=== PATIENT | male | born 1935 | race Caucasian/White ===

== ENCOUNTER 2018-01-06 07:50 | Inpatient (IN) | payer MEDICARE ==
[2018-01-06 08:50] LABS: Anion Gap 14 mmol/L (10-20); BUN (Urea Nitrogen) 24 mg/dL (8.4-25.7); Calc. Creatinine Clearance 0 mL/min (70-130); Calcium 9.7 mg/dL (7.8-10.44); Carbon Dioxide 27 mmol/L (23-31); Chloride 97 mmol/L (98-107); Estimated GFR-MDRD 40; Glucose 106 mg/dL (83-110); Potassium 4.1 mmol/L (3.5-5.1); Sodium 134 mmol/L (136-145)
[2018-01-06 08:57] LABS: Troponin I 0.077 ng/mL (< 0.028)
--- NOTE | 2018-01-06 10:02 | CT ---
CT ANGIOGRAM CHEST WITH CONTRAST: HISTORY: Chest pain. COMPARISON: Chest radiograph 09/12/05. FINDINGS: CT angiogram chest performed after the intravenous administration of contrast. Three-D rendering pro vided. FINDINGS: No proximal segmental pulmonary arterial filling defect. Pulmonary trunk size is normal measuring ap proximately 27 mm. No aneurysmal dilatation of the aorta. Mild increase in number and size of AP window and prevascular peritracheal lymph nodes. There is reflux of contrast within the suprahepatic IVC and hepatic vein as well as within the infrah epatic IVC. Moderate bilateral pleural effusions. There is mild interstitial thickening throughout the lungs. Mild peribronchial cuffing. No mass. N o pneumothorax. IMPRESSION: 1. No proximal segmental pulmonary arterial filling defect. 2. Reflux of contrast within the superior hepatic inferior vena cava, hepatic veins, and infrahepati c inferior vena cava suggesting diastolic dysfunction. Followup echocardiogram may be beneficial in this patient. 3. Layering bilateral pleural effusions as well as moderate pulmonary edema suggesting congestive he art failure. POS: [facility]
[2018-01-06] MEDS ORDERED: Furosemide 40 MG/4 ML VIAL ONE (10:09)
[2018-01-06] MEDS ORDERED: Nitroglycerin 2% Ointment 1 INCH/1 GM Packet ONE (10:09)
[2018-01-06 12:00] LABS: Troponin I 0.085 ng/mL (< 0.028)
[2018-01-06] MEDS ORDERED: ISOVUE-370 76%-LOCM 1 ML ONE (12:43)
[2018-01-06] MEDS ORDERED: Ondansetron ODT 4 MG TAB SL PRN (13:13)
[2018-01-06] MEDS ORDERED: Acetaminophen 325 MG TAB PO PRN ×2 (13:13→13:25)
[2018-01-06] MEDS ORDERED: Ondansetron HCl/PF 4 MG/2 ML Vial IVP PRN ×2 (13:13→13:25)
[2018-01-06] MEDS ORDERED: Zolpidem Tartrate 5 MG TAB PO PRN (13:25)
[2018-01-06] MEDS ORDERED: Nitroglycerin 0.4 MG TAB (25 Tab Bottle) PO PRN (13:25)
[2018-01-06 13:26] VITALS: BMI 26.5
--- NOTE | 2018-01-06 14:21 | HP ---
PRIMARY CARE PROVIDER: Dr. Vaz at [facility] in [place]. HISTORY OF PRESENT ILLNESS: The patient referred to the [facility] Service by [facility] after being referred from the [facility] Emergency Room. Patient refer red for acute onset of CHF symptomatology. The patient woke up last night gasping for breath, sweaty . Denies chest tightness or chest pain. He had no nausea. PAST MEDICAL HISTORY: Pertinent for hypertension, elevated cholesterol, and coronary artery disease. CURRENT MEDICATIONS: Lisinopril 5 mg a day, aspirin 81 mg a day, Coreg 3.125 mg twice a day, Crestor 20 mg a day. He has had three eye drops recently that all caused swelling and itching in his right eye and he discontinued them. ALLERGIES: No known drug allergies. PAST SURGICAL HISTORY: Coronary artery bypass graft in 2004, laser surgery for glaucoma last year, d rops were given afterwards and discontinue tomorrow for local irritation. FAMILY HISTORY: Father of coronary artery disease. Mother with Alzheimer's. SOCIAL HISTORY: He is , FULL CODE status. next of kin, surrogate decision maker. Nonto bacco user. Drinks approximately 1-2 beers a week. REVIEW OF SYSTEMS: GENERAL: He says he has had some malaise for about 10 days. No dizziness, faint ing. EYES: He has got the irritation in his right eye, but no double vision, blurred vision, flashi ng lights. EAR, NOSE, AND THROAT: No ear pain or drainage. No nasal bleeding. No trouble swallowi ng. CARDIAC: No chest pain of any type. No orthopnea. He did have nocturnal dyspnea last night. RESPIRATIONS: He has had a dry cough for about a week. Denies any dyspnea on exertion or wheezing. GASTROINTESTINAL: No nausea, vomiting, diarrhea, constipation or melena. GENITOURINARY: He has no cturia x1 with no dysuria or hematuria. MUSCULOSKELETAL: No pain or swelling in his arms and legs. NEUROLOGICAL: No strokes, seizures or focal weakness. PSYCHIATRIC: No anxiety or depression. HEM E/LYMPH: No tender or swollen lymph nodes under his arms, neck or his groin. SKIN: No bruises, ble eding or rash. PHYSICAL EXAMINATION: GENERAL: The patient is alert, cooperative, pleasant gentleman. VITAL SIGNS: Blood pressure 154/91, pulse 65, respirations 20, O2 sat 96% on room air, temperature 9 7.6. HEENT: Examination of his head, eyes, ears, nose, and throat reveal pupils are equal, round, and yisel ctive to light. Extraocular movements are intact. Sclerae are white. He has an injected mucous mem brane on the lids of his right eye. Tympanic membranes clear. Nose is clear. Oral mucous membranes are wet. Dental hygiene is good. NECK: Supple, without jugular venous distention, adenopathy or thyromegaly. CHEST: Clear to percussion. He has rales to mid scapula posteriorly bilaterally, scant anterior low er rales. HEART: Regular rate and rhythm. First and second heart sounds are clear. There is an S4 gallop. ABDOMEN: Soft, bowel sounds are normal. There is no hepatosplenomegaly, no mass, no rebound, no bru its. EXTREMITIES: Reveal no cyanosis, clubbing or edema. PULSES: Carotid, radial, femoral, and dorsalis pedis pulses are intact. SKIN: Warm and dry without bruises or rash. LYMPHATIC: No tender or swollen lymph nodes in axilla, inguinal or cervical area. NEUROLOGIC: Cranial nerves II-XII intact. Deep tendon reflexes symmetric. Toes downgoing. LABORATORY DATA AND X-RAY FINDINGS: His troponin in [place] was 0.06, creatinine 1.75, BUN 24, blood sugar 119. Liver function test is normal. Electrolytes normal. CBC: White count 9.8, hemoglobin 10.8. Chest x-ray, cardiomegaly with CHF here. The patient has had an electrocardiogram, regular si nus rhythm, ST-T depression laterally and inferiorly consistent with ischemia, read by me. Laborator y was repeated here, creatinine 1.66, BUN 24, sodium 134, potassium 4.1, and troponin 0.077 and 0.085 . ADMITTING DIAGNOSES: 1. Acute onset of congestive heart failure. 2. Demand ischemia versus non-ST elevation myocardial infarction. 3. Coronary artery disease. 4. Hypertension. 5. Dyslipidemia. PLAN: 1. Dr. Mckee has been consulted. 2. Echocardiogram. 3. Continue diuresis started in the ER. 4. Reinstitute Coreg and lisinopril when patient improved. 5. Lovenox therapeutic dose for non-ST elevation OK. Further considerations will be made after katie ent is seen by Dr. Mckee and data is obtained.
[2018-01-06 14:25] LABS: Troponin I 0.096 ng/mL (< 0.028)
[2018-01-06] MEDS ORDERED: Furosemide 40 MG/4 ML VIAL SLOW IVP SCH ×2 (16:00→20:00)
--- NOTE | 2018-01-06 18:21 | RAD ---
FRONTAL RADIOGRAPH CHEST 01/06/18 COMPARISON: 09/30/05 HISTORY: Congestive heart failure. COMPARISON: PA and lateral imaging of the chest following treatment advised to document resolution. FINDINGS: There is prominence of the cardiac silhouette. Midline sternotomy wires are present. There is mild pu lmonary vascular congestion and perihilar interstitial prominence. Subtle hazy density in both lung b ases suggests small bilateral pleural effusions. No alveolar opacity. No focal consolidation. There is atherosclerotic calcification in the aortic arch. IMPRESSION: Pulmonary vascular prominence and interstitial opacity with probable small bilateral pleural effusion suggests interstitial edema. This appears mildly improved when compared to chest CT performed 8. POS: [facility]
[2018-01-06] MEDS ORDERED: Potassium Chloride 20 MEQ TAB PO SCH ×2 (20:00)
[2018-01-06] MEDS ORDERED: Enoxaparin Sodium 40 MG/0.4 ML SYRINGE SC SCH (20:00)
[2018-01-06] MEDS ORDERED: Communication Order-Pharmacy FS SCH (20:00)
[2018-01-06] MEDS ORDERED: Prevnar 13-Val Conj/PF 0.5 ML SYRINGE IM ONE (21:00)
[2018-01-06] MEDS ORDERED: Enoxaparin Sodium 80 MG/0.8 ML SYRINGE SC SCH (21:00)
[2018-01-06] MEDS: Carvedilol 3.125 MG TAB PO SCH (21:04)
--- NOTE | 2018-01-07 01:12 | CON ---
DATE OF CONSULTATION: 01/06/2018 REASON FOR CONSULTATION: Flash pulmonary edema. HISTORY OF PRESENT ILLNESS: Mr. Neff is a very pleasant 83-year-old gentleman with previous hist ory of coronary artery bypass grafting, who was transferred from [place] for sudden onset of pulmonar y edema. Mr. Neff states he has been doing well, but he has noted when he tries to exert himself he feels somewhat short of breath, which he previously was not doing. He did not have any trouble breathing a t night. Last night; however, he had severe difficulty breathing and a severe choking sensation. He went to the hospital and he was found to be in pulmonary edema. He received diuretics. He is feeling somewhat better, still cannot lie totally flat comfortably, but much better. PAST MEDICAL HISTORY: 1. He has a history of coronary artery bypass grafting done in 2004 for multivessel coronary disease . 2. History of hypertension. 3. Hypercholesterolemia. MEDICATIONS: At home included rosuvastatin, carvedilol, aspirin, lisinopril. ALLERGIES: None known. REVIEW OF SYSTEMS: Constitutional: No significant weight gain or loss. Vision: No changes. Heari ng: No changes. Pulmonary: Positive for shortness of breath. Cardiac: Positive for shortness of breath. Gastrointestinal: No nausea, vomiting, diarrhea. Skin: No rashes. Neurologic: No unilat eral weakness or numbness. Psychiatric: No unusual depression or anxiety. PHYSICAL EXAMINATION: GENERAL: This is a pleasant elderly gentleman in no distress. VITAL SIGNS: Blood pressure 143/73; pulse 62, it is regular. EYES: Sclerae nonicteric. MOUTH: Mucous membranes moist. NECK: Supple, no lymphadenopathy. LUNGS: Clear, no wheezing, rales, or rhonchi. CARDIOVASCULAR: Normal S1, normal S2. There is no murmur, rub, or gallop. ABDOMEN: Soft, nontender, no hepatosplenomegaly. EXTREMITIES: Warm and dry. No clubbing or cyanosis. There is no edema. The patient has good femor al pulses, but diminished pedal pulses. LABORATORY AND X-RAY FINDINGS: EKG sinus rhythm, T-wave inversion laterally, possibly ischemia. Troponin level peaked 0.096. ASSESSMENT: 1. Congestive heart failure, likely systolic, acute on chronic, probably ischemic. 2. Previous bypass surgery. 3. Stage 3 renal failure, estimated GFR is 40. PLAN: 1. Give one additional dose of diuretics. 2. He will need cardiac catheterization. Discussed risks of stroke, heart attack, iodine allergy, i nterfering with blood supply to the leg or kidney, stent thrombosis, stent restenosis. He understand s and wished to proceed.
[2018-01-07 04:55] LABS: Anion Gap 15 mmol/L (10-20); BUN (Urea Nitrogen) 24 mg/dL (8.4-25.7); Calc. Creatinine Clearance 42 mL/min (70-130); Calcium 9.4 mg/dL (7.8-10.44); Carbon Dioxide 31 mmol/L (23-31); Chloride 93 mmol/L (98-107); Estimated GFR-MDRD 43; Glucose 92 mg/dL (83-110); Potassium 3.6 mmol/L (3.5-5.1); Sodium 135 mmol/L (136-145)
[2018-01-07] MEDS ORDERED: Furosemide 40 MG/4 ML VIAL SLOW IVP SCH (06:00)
[2018-01-07] MEDS: Sodium Chloride 0.9% 1,000 ML IV SCH (06:08)
[2018-01-07] MEDS: Lisinopril 5 MG TAB PO SCH (06:12)
[2018-01-07] MEDS: Carvedilol 3.125 MG TAB PO SCH (06:12)
[2018-01-07] MEDS ORDERED: Loratadine 10 MG TAB PO PRN (07:30)
[2018-01-07] MEDS ORDERED: Senokot 8.6 MG TAB PO PRN (07:30)
[2018-01-07] MEDS ORDERED: Ondansetron ODT 4 MG TAB PO PRN (07:30)
[2018-01-07] MEDS ORDERED: Chloraseptic Spray 180 ml Bottle PO PRN (07:30)
[2018-01-07] MEDS ORDERED: Sodium Chloride 0.65% Nasal 44 ML BOT EA NARE PRN (07:30)
[2018-01-07] MEDS ORDERED: hydrALAZINE 20 MG/ML VIAL SLOW IVP PRN (07:30)
[2018-01-07] MEDS ORDERED: Mag-Al 1200 mg/1200 mg/30 ML UDCUP PO PRN (07:30)
[2018-01-07] MEDS ORDERED: Loperamide HCl 2 MG CAP PO PRN (07:30)
[2018-01-07] MEDS ORDERED: Milk Of Magnesia 30 ML UDCUP PO PRN (07:30)
[2018-01-07] MEDS ORDERED: Eucerin (Mineral Oil/Petrolatum,White) 30 gm Jar TOP PRN (07:30)
[2018-01-07] MEDS ORDERED: Diabetic Tussin 200 MG/10 ML UDCUP PO PRN (07:30)
[2018-01-07] MEDS ORDERED: Artificial Tear Sol 15 ML BOT EA EYE PRN (07:54)
[2018-01-07] MEDS ORDERED: Lidocaine 1% (PF) 30 ML VIAL ONE (08:40)
[2018-01-07] MEDS ORDERED: Famotidine 20 MG TAB PO SCH (09:00)
[2018-01-07] MEDS ORDERED: Fentanyl 100 MCG/2 ML VIAL ONE (09:22)
[2018-01-07] MEDS ORDERED: Midazolam HCl 2 mg/2 ml Vial ONE (09:23)
[2018-01-07] MEDS ORDERED: Nitroglycerin 100MG/250ML BOT 250 ML ONE (09:48)
[2018-01-07] MEDS ORDERED: Nitroglycerin 0.4 MG TAB (25 Tab Bottle) SL PRN (10:21)
[2018-01-07] MEDS ORDERED: traMADol HCl 50 MG TAB PO PRN (10:21)
[2018-01-07] MEDS ORDERED: Acetaminophen/Codeine 30-300mg Tablet PO PRN (10:21)
[2018-01-07] MEDS ORDERED: Sodium Chloride 0.9% 200 ML IV PRN (10:30)
[2018-01-07] MEDS: Ketotifen Fumarate 0.025% Ophth Soln 5 ml Bottle R EYE SCH ×2 (10:42→20:34)
[2018-01-07] MEDS: Rosuvastatin 20 MG TAB PO SCH ×2 (10:44)
[2018-01-07] MEDS: Aspirin 325 MG TAB PO SCH (10:44)
--- NOTE | 2018-01-07 10:59 | PDOC.PN ---
- Subjective Encounter Start Date: 01/07/18 Encounter Start Time: 09:30 -: old records requested/rev c/o right eye redness, no headache, no chest pain, Patient seen and examined. No new complaints. No overnight events - Objective Resuscitation Status: Resuscitation Status FULL:Full Resuscitation MAR Reviewed: Yes Vital Signs & Weight: Vital Signs (12 hours) Temp Pulse Resp BP BP Pulse Ox 01/07/18 07:44 98 F 65 15 98 01/07/18 07:11 98 F 65 15 142/68 H 91 L 01/07/18 06:00 98.1 F 61 18 133/70 94 L 01/07/18 00:27 98.1 F 67 16 137/66 92 L Weight Weight 173 lb 1.006 oz I&O: 01/06/18 01/07/18 01/08/18 06:59 06:59 06:59 Intake Total 1160 Output Total 2875 Balance -1715 Result Diagrams: 01/07/18 03:31 Radiology Reviewed by me: Yes EKG Reviewed by me: Yes Phys Exam - Physical Examination Constitutional: NAD HEENT: PERRLA, moist MMs, sclera anicteric right eye redness Neck: no nodes, no JVD, supple Respiratory: no wheezing, no rhonchi few basilar rales Cardiovascular: RRR, no significant murmur, no rub Gastrointestinal: soft, non-tender, no distention, positive bowel sounds Musculoskeletal: pulses present, edema present Neurological: non-focal, normal sensation, moves all 4 limbs Psychiatric: normal affect, A&O x 3 Skin: no rash, normal turgor Dx/Plan (1) Acute on chronic systolic (congestive) heart failure Code(s): I50.23 - ACUTE ON CHRONIC SYSTOLIC (CONGESTIVE) HEART FAILURE Status : Acute (2) Elevated troponin Code(s): R74.8 - ABNORMAL LEVELS OF OTHER SERUM ENZYMES Status: Acute (3) CKD (chronic kidney disease) stage 3, GFR 30-59 ml/min Code(s): N18.3 - CHRONIC KIDNEY DISEASE, STAGE 3 (MODERATE) Status: Chronic (4) Dyslipidemia Code(s): E78.5 - HYPERLIPIDEMIA, UNSPECIFIED Status: Chronic (5) Hypertension Code(s): I10 - ESSENTIAL (PRIMARY) HYPERTENSION Status: Chronic (6) Glaucoma Code(s): H40.9 - UNSPECIFIED GLAUCOMA Status: Chronic - Plan cont current plan of care * continue IV lasix * gentle IVF before cardiac cath * plan for cardiac cath * transfer to tele * medication reviewed as below * symptomatic treatment * add zaditor eye drop and artificial tear. Review of Systems - Review of Systems Constitutional: negative: fever, chills, sweats, weakness, malaise, other Eyes: Redness. negative: Pain, Vision Change, Conjunctivae Inflammation, Eyelid Inflammation, Other ENT: negative: Ear Pain, Ear Discharge, Nose Pain, Nose Discharge, Nose Congestion, Mouth Pain, Mouth Swelling, Throat Pain, Throat Swelling, Other Respiratory: negative: Cough, Dry, Shortness of Breath, Hemoptysis, SOB with Excertion, Pleuritic Pain, Sputum, Wheezing Cardiovascular: negative: chest pain, palpitations, orthopnea, paroxysmal nocturnal dyspnea, edema, light headedness, other Gastrointestinal: negative: Nausea, Vomiting, Abdominal Pain, Diarrhea, Constipation, Melena, Hematochezia, Other Genitourinary: negative: Dysuria, Frequency, Incontinence, Hematuria, Retention , Other Musculoskeletal: negative: Neck Pain, Shoulder Pain, Arm Pain, Back Pain, Hand Pain, Leg Pain, Foot Pain, Other Skin: negative: Rash, Lesions, Pieter, Bruising, Other Neurological: negative: Weakness, Numbness, Incoordination, Change in Speech, Confusion, Seizures, Other - Medications/Allergies Allergies/Adverse Reactions: Allergies Allergy/AdvReac Type Severity Reaction Status Date / Time No Known Drug Allergies Allergy Verified 01/06/18 13:10 Medications: Current Medications Acetaminophen (Tylenol) 650 mg PO Q4H PRN PRN Reason: Headache/Fever or Pain Last Admin: 01/06/18 21:10 Dose: 650 mg Acetaminophen/Codeine Phosphate (Tylenol #3) 1 tab PO Q4H PRN PRN Reason: Mild Pain (1-3) Al Hydroxide/Mg Hydroxide (Maalox) 15 ml PO Q4H PRN PRN Reason: Heartburn or Indigestion Artificial Tears (Tears Renewed 15ml Bottle) 2 drop EA EYE QID PRN PRN Reason: Dry Eyes Aspirin (Aspirin) 325 mg PO DAILY [facility] Last Admin: 01/07/18 10:44 Dose: 325 mg Carvedilol (Coreg) 3.125 mg PO BID [facility] Last Admin: 03/29/18 06:12 Dose: 3.125 mg Famotidine (Pepcid) 20 mg PO BID [facility] Last Admin: 01/07/18 10:44 Dose: 20 mg Guaifenesin (Robitussin Sf) 200 mg PO Q4H PRN PRN Reason: Cough Hydralazine HCl (Apresoline) 10 mg SLOW IVP Q4H PRN PRN Reason: Systolic BP > 180 Sodium Chloride (Normal Saline 0.9%) 1,000 mls @ 50 mls/hr IV .Q20H [facility] Last Admin: 01/07/18 06:08 Dose: 1,000 mls Sodium Chloride (Normal Saline 0.9%) 200 mls @ 0 mls/hr IV ONE PRN; As Directed PRN Reason: Bolus PRN SBP < 90 mm Hg Stop: 01/10/18 10:31 Ketotifen Fumarate (Zaditor 0.025% Oph Soln) 1 drop R EYE BID [facility] Last Admin: 01/07/18 10:42 Dose: 1 drop Lisinopril (Zestril) 5 mg PO DAILY [facility] Last Admin: 01/07/18 06:12 Dose: 5 mg Loperamide HCl (Imodium) 2 mg PO PRN PRN PRN Reason: Diarrhea/Loose Stools Loratadine (Claritin) 10 mg PO DAILYPRN PRN PRN Reason: Sinus Symptoms Magnesium Hydroxide (Milk Of Magnesium) 30 ml PO DAILYPRN PRN PRN Reason: Constipation Mineral Oil/White Petrolatum (Eucerin Cream) 0 gm TOP BIDPRN PRN PRN Reason: Dry Skin Nitroglycerin (Nitrostat) 0.4 mg PO Q5MIN PRN PRN Reason: Chest Pain Nitroglycerin (Nitrostat) 0.4 mg SL Q5MIN PRN PRN Reason: Chest Pain Ondansetron HCl (Zofran) 4 mg IVP Q6H PRN PRN Reason: Nausea/Vomiting Ondansetron HCl (Zofran Odt) 4 mg PO Q6H PRN PRN Reason: Nausea/Vomiting Phenol (Chloraseptic [place] 180 Ml Bot) 0 ml PO PRN PRN PRN Reason: Sore Throat Rosuvastatin Calcium (Crestor) 20 mg PO DAILY [facility] Last Admin: 01/07/18 10:44 Dose: 20 mg Senna (Senokot) 2 tab PO HSPRN PRN PRN Reason: Constipation Sodium Chloride (Christoval Nasal [place] 0.65%) 0 ml EA NARE QIDPRN PRN PRN Reason: Nasal Congestion Sodium Chloride (Flush - Normal Saline) 10 ml IVF Q12HR ILDEFONSO Sodium Chloride (Flush - Normal Saline) 10 ml IVF PRN PRN PRN Reason: Saline Flush Tramadol HCl (Ultram) 50 mg PO Q6H PRN PRN Reason: Moderate Pain (4-6) Zolpidem Tartrate (Ambien) 5 mg PO HSPRN PRN PRN Reason: Insomnia
[2018-01-07] MEDS ORDERED: Iopamidol 370 76% 100 ML VIAL ONE (12:21)
--- NOTE | 2018-01-07 14:07 | PQF ---
CLINICAL DOCUMENTATION IMPROVEMENT CLARIFICATION FORM: ICD-10 Updated PLEASE DO AN ADDENDUM TO THE PROGRESS NOTE WITH ANY DOCUMENTATION UPDATES OR ADDITIONS AND CARRY THROUGH TO DC SUMMARY. THANK YOU. DATE: 01/07/18 ATTN: DR. ALDANA Please exercise your independent, professional judgment in responding to the clarification form. Clinical indicators are provided on the bottom of this form for your review Please check appropriate box(s) to clarify if the following diagnosis has been ruled in or ruled out: NSTEMI [ ] Ruled in diagnosis [ ] Continue to treat [ ] Resolved [ x] Ruled out diagnosis [ ] Cannot rule out diagnosis [ ] Other diagnosis [ ] Unable to determine In addition, please specify: Present on Admission (POA): [ ] Yes [ x ] No [ ] Unable to determine For continuity of documentation, please document condition throughout progress notes and discharge summary. Thank You. CLINICAL INDICATORS - SIGNS / SYMPTOMS / LABS H&P 01/06: "DEMAND ISCHEMIA VERSUS NON-ST ELEVATION MYOCARDIAL INFARCTION" TROPONINS: 0.077 / 0.085 / 0.096 RISKS: HYPERTENSION CHF TREATMENT: CARDIOLOGY CONSULT ECHOCARDIOGRAM ASPIRIN CARDIAC MONITORING (This form is maintained as a part of the permanent medical record) 2014 [employer]. All Rights Reserved SID [email or web address] Office: [phone] [facility] MED[facility] CENTERMelinda
[2018-01-07 18:10] LABS: Hemoglobin 11.8 g/dL (14.0-18.0)
[2018-01-07] MEDS: Carvedilol 6.25 MG TAB PO SCH (20:34)
[2018-01-08] MEDS: Sodium Chloride 0.9% 1,000 ML IV SCH (04:08)
[2018-01-08 04:54] LABS: #Basophils 0.1 thou/uL (0.0-0.2); #Eosinphils 0.5 thou/uL (0.0-0.7); #Lymphocytes 2.3 thou/uL (1.20-3.40); #Monocytes 1.3 thou/uL (0.11-0.59); #Neutrophils 6.5 thou/uL (1.40-6.50); %Basophils 0.8 % (0.0-1.0); %Eosinophils 4.9 % (0.0-10.0); %Lymphocytes 21.8 % (21.0-51.0); %Neutrophils 60.5 % (42.0-75.0); Hemoglobin 11.3 g/dL (14.0-18.0); Mean Corpuscular HGB CONC 33.2 g/dL (32.0-36.0); Mean Corpuscular Hemoglobin 32.9 pg (27.0-31.0); Mean Corpuscular Volume 99.1 fl (80.0-94.0); Mean Platelet Volume 6.8 fL (7.4-10.4); Platelet Count 332 thou/uL (130-400); RBC Distribution Width 12.2 % (11.5-14.5); Red Blood Cell (RBC) Count 3.43 mill/uL (4.70-6.10); White Blood Cell (WBC) Count 10.7 thou/uL (4.8-10.8)
[2018-01-08 05:03] LABS: ALT (SGPT) 10 U/L (8-55); AST (SGOT) 15 U/L (5-34); Albumin 3.5 g/dL (3.4-4.8); Alkaline Phosphatase 61 U/L (40-150); Anion Gap 11 mmol/L (10-20); BUN (Urea Nitrogen) 21 mg/dL (8.4-25.7); Bilirubin, Total 0.6 mg/dL (0.2-1.2); Calc. Creatinine Clearance 39 mL/min (70-130); Calcium 9.3 mg/dL (7.8-10.44); Carbon Dioxide 34 mmol/L (23-31); Cardiac Risk 3.8 (Less than 4.5); Chloride 96 mmol/L (98-107); Cholesterol 129 mg/dl (< 200 Desired); Estimated GFR-MDRD 41; Globulin 3.5 g/dL (2.4-3.5); Glucose 95 mg/dL (83-110); HDL Cholesterol 34 mg/dL (>60 Neg Risk); LDL Cholesterol, Calculated 79 mg/dL; Potassium 3.9 mmol/L (3.5-5.1); Sodium 137 mmol/L (136-145); Triglycerides 82 mg/dL (Less than 150)
[2018-01-08] MEDS: Ketotifen Fumarate 0.025% Ophth Soln 5 ml Bottle R EYE SCH (08:38)
[2018-01-08] MEDS: Aspirin 325 MG TAB PO SCH (08:38)
[2018-01-08] MEDS: Rosuvastatin 20 MG TAB PO SCH ×2 (08:39)
[2018-01-08] MEDS: Lisinopril 5 MG TAB PO SCH (08:39)
[2018-01-08] MEDS: Carvedilol 6.25 MG TAB PO SCH (08:39)
[2018-01-08] MEDS ORDERED: Famotidine 20 MG TAB PO SCH (09:00)
--- NOTE | 2018-01-08 10:01 | ULT ---
VASCULAR ULTRASOUND of RIGHT INGUINAL REGION AND LOWER EXTREMITY: Date: 01/08/18 TECHNIQUE: Denny scale and Doppler color flow imaging with spectral analysis performed. CLINICAL HISTORY: Pseudoaneurysm evaluation. FINDINGS: Doppler imaging and Denny scale imaging of the right inguinal region at site of femoral vasculature re veals no evidence of abnormal extension of flow beyond the expected confines of the visualized vascul ature. There is no pseudoaneurysm detected. IMPRESSION: No sonographic evidence of pseudoaneurysm. POS: [facility]
[2018-01-08] MEDS ORDERED: Furosemide 20 MG TAB PO SCH (10:30)
--- NOTE | 2018-01-08 10:42 | PRG ---
DATE OF SERVICE: 01/08/2018 HISTORY: Mr. Neff is doing well. No chest pain or tightness. No complaints. PHYSICAL EXAMINATION: VITAL SIGNS: Blood pressure 146/74, pulse 72. LUNGS: Clear. CARDIAC: Normal S1, S2. ABDOMEN: Soft, nontender. EXTREMITIES: No edema. Right groin is nontender. Ultrasound of the right groin was normal. ASSESSMENT: 1. Congestive heart failure, ejection fraction approximately 30% on echocardiogram. 2. Previous bypass surgery with patent grafts. 3. Hypertension. 4. Stage 3 renal failure with a GFR of 41. PLAN: 1. Okay to go home. 2. Lisinopril 5 mg daily. 3. Increase Coreg to 6.25 mg twice daily. 4. Furosemide 20 mg a day. 5. Aspirin 81 mg a day. 6. Crestor 20 mg. 7. I have asked him to see me in the office in 3-4 weeks. We did discuss a LifeVest. There is a sm all risk of life-threatening arrhythmia in the next 90 days. The risk would not be expected to be ex tremely high in view of lack of any infarction on this occasion and he is adequately vascularized, bu t there is some small risk. The patient prefers not to have a LifeVest at this point I did recommend that after 3 months if the ejection fraction is below 35%, a defibrillator should be considered at t hat point as there is more of a real risk in the next 5 years of arrhythmia if the ejection fraction is not over 35%.
[2018-01-08 11:34] VITALS: TEMP 97.9
[2018-01-08 11:46] VITALS: BP 140/66
--- NOTE | 2018-01-08 12:07 | DIS ---
DATE OF ADMISSION: 01/06/2018 DATE OF DISCHARGE: 01/08/2018 PRIMARY CARE PHYSICIAN: Dr. Vlad Vaz. DISCHARGE DISPOSITION: Home. PRIMARY DISCHARGE DIAGNOSES: 1. Acute on chronic systolic congestive heart failure exacerbation. 2. Demand ischemia of myocardium, status post cardiac catheterization. SECONDARY DISCHARGE DIAGNOSES: Glaucoma, chronic kidney disease stage 3, hypertension, dyslipidemia and chronic systolic heart failure. PRIMARY PROCEDURE/OPERATION: Cardiac catheterization by Dr. Mckee. RADIOLOGICAL INVESTIGATION: CT angiography, negative for pulmonary embolism. Echocardiography showe d ejection fraction of 25% to 30%. Lower extremity ultrasound, negative for any pseudoaneurysm. SIGNIFICANT LABORATORY DATA: WBC is 10.7, hemoglobin 11.3 and platelet 332. Sodium 137 and creatini ne 1.64. Electrolytes normal. LFT normal. Troponin 0.096. TSH 1.30 and LDL 79. DISCHARGE MEDICATIONS: Artificial tears 2 drops each eye as directed, aspirin 81 mg p.o. daily, Core g 6.25 mg p.o. b.i.d., Lasix 20 mg p.o. b.i.d., ketotifen ophthalmic drops right eye b.i.d., lisinopr il 5 mg p.o. daily and Crestor 20 mg p.o. daily. CONTRAINDICATIONS: The patient is not given Aldactone because of his elevated creatinine and the [facility] is at risk for hyperkalemia. INPATIENT PILOT SUBMERSIBLE: Dr. Mckee. TEST RESULT PENDING ON DISCHARGE: None. ALLERGIES: No known drug allergy. DISCHARGE PLAN: Post hospital, the patient will follow up with primary care physician as well as [facility] an outpatient basis. The patient will follow up with Dr. Mckee as instructed. HOSPITAL COURSE: An 83-year-old male who was admitted by Dr. Huddleston. Please see his H&P for further details. The patient was admitted for increasing shortness of breath. He was found with acute on ch ronic systolic heart failure. During this admission, echocardiography showed ejection fraction 25% t o 30%. During this admission, we increased dose of Coreg to 6.25 mg p.o. b.i.d. Lisinopril will be continued as per previous. Lasix was added. While in the hospital, he was given IV Lasix with signi ficant improvement. For ischemic workup, patient underwent cardiac catheterization, which was prett y much unremarkable. He had a bypass graft patent. He did not require any new stent placement. Aft er cardiac catheterization, he had bleeding from the catheterization site, which required lot of comp ression and finally bleeding stopped. His hemoglobin and hematocrit did not drop. He did not requir e any blood transfusion. Next day, we did ultrasound groin, which was negative for any pseudoaneurys m. The patient's oxygen saturation is normal. His congestive heart failure completely improved to n ormal. The patient is also feeling much better to go home. Cardiology cleared him for discharge as well. The patient is seen and examined at bedside today. All review of system reviewed with him and negati ve. While in hospital, he had some pink eye on the right side and that is why we started artificial drop as well as a Zaditor eyedrops. The patient will follow up with his web press roll tender. All new medication prescription sent to his pharmacy. The patient is seen and examined at bedside to day. His examination is normal at this point.
[2018-01-09] MEDS ORDERED: Aspirin 81 mg Enteric Coated Tablet PO SCH (09:00)
== END 2018-01-08 12:31 | disposition home or self-care (01) | DRG 286 ==
LOC: ERS 07:50 → ERHOLD 10:13 → IMCU/EMU 12:56
PROVIDERS: ADMIT Internal Medicine; ATTEND Internal Medicine
PROC: 4A023N7 Measurement of Cardiac Sampling and Pressure, Left Heart, Percutaneous Approach (ICD-10-PCS; principal; 2018-01-07)
PROC: B2111ZZ Fluoroscopy of Multiple Coronary Arteries using Low Osmolar Contrast (ICD-10-PCS; 2018-01-07)
PROC: B2181ZZ Fluoroscopy of Left Internal Mammary Bypass Graft using Low Osmolar Contrast (ICD-10-PCS; 2018-01-07)
PROC: B2171ZZ Fluoroscopy of Right Internal Mammary Bypass Graft using Low Osmolar Contrast (ICD-10-PCS; 2018-01-07)
PROC: B2151ZZ Fluoroscopy of Left Heart using Low Osmolar Contrast (ICD-10-PCS; 2018-01-07)
DX: I13.0 Hypertensive heart and chronic kidney disease with heart failure and stage 1 through stage 4 chronic kidney disease, or unspecified chronic kidney disease (principal); I50.23 Acute on chronic systolic (congestive) heart failure; I24.8 Other forms of acute ischemic heart disease; N18.3 Chronic kidney disease, stage 3 (moderate); Z95.1 Presence of aortocoronary bypass graft; E78.5 Hyperlipidemia, unspecified; R74.8 Abnormal levels of other serum enzymes; H40.9 Unspecified glaucoma; I25.10 Atherosclerotic heart disease of native coronary artery without angina pectoris; I25.2 Old myocardial infarction
CPT/HCPCS: 36415; 71045; 71275; 76942; 80048; 80053; 80061; 83735; 84443; 84484; 85014; 85018; 85025; 90471; 90670; 93005; 93306; 93459; 93798; 93923; 94760; 96374; 99152; 99153; C1769; G0009; J1644; J1940; J2001; J2250; J3010

== ENCOUNTER 2023-12-20 12:23 | Inpatient (IN) | payer MEDICARE ==
[2023-12-20] MEDS ORDERED: Furosemide 40 MG (4 mL) VIAL ONE (13:10)
[2023-12-20 13:13] LABS: #Eosinphils 0.1 thou/uL (0.0-0.7); #Monocytes 1.2 thou/uL (0.11-0.59); #Neutrophils 6.2 thou/uL (1.40-6.50); %Basophils 0.4 % (0.0-1.0); %Eosinophils 1.5 % (0.0-10.0); %Lymphocytes 17.2 % (21.0-51.0); %Monocytes 13.1 % (0.0-10.0); %Neutrophils 67.4 % (42.0-75.0); Hematocrit 31.7 % (42.0-52.0); Hemoglobin 9.8 g/dL (14.0-18.0); Mean Corpuscular HGB CONC 30.9 g/dL (32.0-36.0); Mean Corpuscular Hemoglobin 32.8 pg (27.0-31.0); Platelet Count 278 10x3/uL (130-400); RBC Distribution Width 14.9 % (11.5-14.5); Red Blood Cell (RBC) Count 2.99 mill/uL (4.70-6.10); White Blood Cell (WBC) Count 9.3 10x3/uL (4.8-10.8)
[2023-12-20 13:29] LABS: ALT (SGPT) 157 U/L (8-55); AST (SGOT) 94 U/L (5-34); Albumin 3.8 g/dL (3.4-4.8); Alkaline Phosphatase 163 U/L (40-110); Anion Gap 16 mmol/L (10-20); BUN (Urea Nitrogen) 77 mg/dL (8.4-25.7); Bilirubin, Total 1.1 mg/dL (0.2-1.2); Calc. Creatinine Clearance 0 mL/min (70-130); Calcium 8.9 mg/dL (7.8-10.44); Carbon Dioxide 19 mmol/L (23-31); Chloride 106 mmol/L (98-107); Estimated GFR 15; Globulin 4.1 g/dL (2.4-3.5); Glucose 116 mg/dL (83-110); Lipase 41 U/L (8-78); Potassium 5.2 mmol/L (3.5-5.1); Protein, Total 7.9 g/dL (5.8-8.1); Sodium 136 mmol/L (136-145)
[2023-12-20 13:33] LABS: Troponin I 0.087 ng/mL (< 0.028)
[2023-12-20 14:24] LABS: Influenza A by NAA Not Detected (NotDetected); Influenza B by NAA Not Detected (NotDetected); SARS-CoV-2 NAA Rapid Test Not Detected (NotDetected)
[2023-12-20] MEDS ORDERED: Aspirin Chewable 81 MG TAB ONE (15:01)
[2023-12-20 15:15] LABS: Bilirubin Negative (Negative); Blood, Urine Negative (Negative); Glucose, Urine (Dipstick) Negative (Negative); Ketone, Urine Negative (Negative); Leukocyte Negative (Negative); Nitrite Negative (Negative); Protein, Urine (Dipstick) Negative (Neg-Trace); Urobilinogen 0.2 mg/dL (Less than 2); pH, Urine 5.5 (5.0-9.0)
[2023-12-20 15:16] LABS: Bacteria/HPF None Seen HPF (None Seen); CAUTI Indications for Culture Dysuria,urgency,freq; Clarity Clear (Clear); RBC/HPF 0-3 HPF (0-3); Squamous Epithelial None Seen HPF (0-3); WBC/HPF 0-3 HPF (0-3)
[2023-12-20 15:17] LABS: Urine Culture Reflex No No
[2023-12-20] MEDS ORDERED: Ondansetron ODT 4 MG TAB PO PRN (15:21)
[2023-12-20] MEDS ORDERED: Acetaminophen 325 MG TAB PO PRN (15:21)
[2023-12-20] MEDS ORDERED: Ondansetron PF 4 MG/2 ML Vial IVP PRN (15:21)
[2023-12-20] MEDS ORDERED: Acetaminophen 650 MG Suppository PR PRN (15:21)
[2023-12-20] MEDS ORDERED: HYDROcodone/Acetaminophen 5/325 mg Tablet PO PRN (15:21)
[2023-12-20 17:54] LABS: Troponin I 0.071 ng/mL (< 0.028)
[2023-12-20] MEDS ORDERED: Doxycycline 100 MG CAP ONE (20:55)
[2023-12-20] MEDS: Doxycycline 100 MG CAP PO SCH (21:00)
[2023-12-21 04:10] LABS: #Eosinphils 0.2 thou/uL (0.0-0.7); #Monocytes 1.2 thou/uL (0.11-0.59); #Neutrophils 5.6 thou/uL (1.40-6.50); %Basophils 0.5 % (0.0-1.0); %Eosinophils 2.1 % (0.0-10.0); %Lymphocytes 19.7 % (21.0-51.0); %Monocytes 13.2 % (0.0-10.0); Hematocrit 29.9 % (42.0-52.0); Hemoglobin 9.3 g/dL (14.0-18.0); Mean Corpuscular HGB CONC 31.1 g/dL (32.0-36.0); Mean Corpuscular Hemoglobin 32.5 pg (27.0-31.0); Mean Corpuscular Volume 104.5 fl (78.0-98.0); Mean Platelet Volume 9.8 fL (7.4-10.4); Platelet Count 254 10x3/uL (130-400); RBC Distribution Width 14.9 % (11.5-14.5); Red Blood Cell (RBC) Count 2.86 mill/uL (4.70-6.10); White Blood Cell (WBC) Count 8.7 10x3/uL (4.8-10.8)
[2023-12-21 04:28] LABS: ALT (SGPT) 137 U/L (8-55); AST (SGOT) 80 U/L (5-34); Albumin 3.3 g/dL (3.4-4.8); Alkaline Phosphatase 141 U/L (40-110); Anion Gap 17 mmol/L (10-20); BUN (Urea Nitrogen) 78 mg/dL (8.4-25.7); Bilirubin, Total 1.1 mg/dL (0.2-1.2); Calc. Creatinine Clearance 16 mL/min (70-130); Calcium 8.9 mg/dL (7.8-10.44); Carbon Dioxide 17 mmol/L (23-31); Chloride 108 mmol/L (98-107); Estimated GFR 15; Globulin 3.7 g/dL (2.4-3.5); Glucose 94 mg/dL (83-110); Potassium 4.9 mmol/L (3.5-5.1); Sodium 137 mmol/L (136-145)
[2023-12-21] MEDS ORDERED: Doxycycline 100 MG CAP ONE (09:41)
[2023-12-21 12:04] LABS: Bilirubin Negative (Negative); Blood, Urine Negative (Negative); Glucose, Urine (Dipstick) Negative (Negative); Ketone, Urine Negative (Negative); Leukocyte Negative (Negative); Nitrite Negative (Negative); Protein, Urine (Dipstick) Negative (Neg-Trace); Urobilinogen 0.2 mg/dL (Less than 2); pH, Urine 5.5 (5.0-9.0)
[2023-12-21 12:08] LABS: Bacteria/HPF None Seen HPF (None Seen); CAUTI Indications for Culture Dysuria,urgency,freq; RBC/HPF 0-3 HPF (0-3); Squamous Epithelial 0-3 HPF (0-3); WBC/HPF 0-3 HPF (0-3)
[2023-12-21 12:18] LABS: Clarity Clear (Clear)
[2023-12-21 12:19] LABS: Urine Culture Reflex No No
[2023-12-21] MEDS: Guaifenesin DM 100-10/5 ML UDCUP PO PRN (20:03)
[2023-12-21] MEDS: Furosemide 20 MG (2 mL) VIAL SLOW IVP SCH (20:04)
[2023-12-22 06:00] LABS: Anion Gap 18 mmol/L (10-20); BUN (Urea Nitrogen) 85 mg/dL (8.4-25.7); Calc. Creatinine Clearance 15 mL/min (70-130); Carbon Dioxide 18 mmol/L (23-31); Chloride 105 mmol/L (98-107); Estimated GFR 15; Glucose 108 mg/dL (83-110); Potassium 5.1 mmol/L (3.5-5.1); Sodium 136 mmol/L (136-145)
[2023-12-22] MEDS: Furosemide 20 MG (2 mL) VIAL SLOW IVP SCH (06:28)
[2023-12-22] MEDS: Carvedilol 3.125 MG TAB PO SCH (08:31)
[2023-12-22] MEDS: Aspirin 81 mg Enteric Coated Tablet PO SCH (08:31)
[2023-12-22] MEDS: DOBUTamine 500 mg/250 ml 250 ML IVPB SCH (10:05)
[2023-12-23 05:58] LABS: Hematocrit 28.4 % (42.0-52.0); Hemoglobin 8.8 g/dL (14.0-18.0); Mean Corpuscular Volume 103.3 fl (78.0-98.0); Mean Platelet Volume 9.8 fL (7.4-10.4); Platelet Count 248 10x3/uL (130-400); RBC Distribution Width 14.7 % (11.5-14.5); Red Blood Cell (RBC) Count 2.75 mill/uL (4.70-6.10); White Blood Cell (WBC) Count 9.6 10x3/uL (4.8-10.8)
[2023-12-23 06:11] LABS: Anion Gap 18 mmol/L (10-20); BUN (Urea Nitrogen) 90 mg/dL (8.4-25.7); Calc. Creatinine Clearance 15 mL/min (70-130); Calcium 8.5 mg/dL (7.8-10.44); Carbon Dioxide 19 mmol/L (23-31); Chloride 106 mmol/L (98-107); Estimated GFR 16; Glucose 101 mg/dL (83-110); Iron 23 ug/dL (65-175); Iron Binding Capacity, Total 266 mcg/dL (261-462); Potassium 4.4 mmol/L (3.5-5.1); Sodium 139 mmol/L (136-145)
[2023-12-23 06:15] LABS: Iron 22 ug/dL (65-175); Iron Binding Capacity, Total 270 mcg/dL (261-462)
[2023-12-23] MEDS: Enoxaparin 30 MG (0.3 mL) SYRINGE SC SCH (11:08)
[2023-12-23] MEDS: Furosemide 40 MG (4 mL) VIAL SLOW IVP SCH (14:08)
[2023-12-24 05:11] LABS: #Eosinphils 0.2 thou/uL (0.0-0.7); #Monocytes 0.9 thou/uL (0.11-0.59); #Neutrophils 5.5 thou/uL (1.40-6.50); %Basophils 0.4 % (0.0-1.0); %Eosinophils 2.5 % (0.0-10.0); %Lymphocytes 17.4 % (21.0-51.0); %Monocytes 11.6 % (0.0-10.0); %Neutrophils 67.6 % (42.0-75.0); Hematocrit 28.8 % (42.0-52.0); Hemoglobin 8.9 g/dL (14.0-18.0); Mean Corpuscular HGB CONC 30.9 g/dL (32.0-36.0); Mean Corpuscular Hemoglobin 32.4 pg (27.0-31.0); Mean Corpuscular Volume 104.7 fl (78.0-98.0); Mean Platelet Volume 9.8 fL (7.4-10.4); Platelet Count 246 10x3/uL (130-400); Red Blood Cell (RBC) Count 2.75 mill/uL (4.70-6.10); White Blood Cell (WBC) Count 8.1 10x3/uL (4.8-10.8)
[2023-12-24 05:38] LABS: Anion Gap 19 mmol/L (10-20); BUN (Urea Nitrogen) 86 mg/dL (8.4-25.7); Calc. Creatinine Clearance 17 mL/min (70-130); Calcium 8.9 mg/dL (7.8-10.44); Carbon Dioxide 21 mmol/L (23-31); Chloride 104 mmol/L (98-107); Estimated GFR 18; Glucose 90 mg/dL (83-110); Potassium 3.6 mmol/L (3.5-5.1); Sodium 140 mmol/L (136-145)
[2023-12-24] MEDS: Enoxaparin 30 MG (0.3 mL) SYRINGE SC SCH (10:28)
[2023-12-24] MEDS: Potassium Chloride 10 MEQ TAB PO SCH (10:28)
[2023-12-24] MEDS: DOBUTamine 500 mg/250 ml 250 ML IVPB SCH (11:16)
[2023-12-25 05:41] LABS: #Eosinphils 0.3 thou/uL (0.0-0.7); #Neutrophils 6.1 thou/uL (1.40-6.50); %Basophils 0.3 % (0.0-1.0); %Eosinophils 3.7 % (0.0-10.0); %Lymphocytes 18.5 % (21.0-51.0); %Monocytes 11.2 % (0.0-10.0); Hematocrit 31.5 % (42.0-52.0); Hemoglobin 9.6 g/dL (14.0-18.0); Mean Corpuscular HGB CONC 30.5 g/dL (32.0-36.0); Mean Corpuscular Hemoglobin 31.5 pg (27.0-31.0); Mean Corpuscular Volume 103.3 fl (78.0-98.0); Mean Platelet Volume 9.2 fL (7.4-10.4); Platelet Count 277 10x3/uL (130-400); RBC Distribution Width 14.8 % (11.5-14.5); Red Blood Cell (RBC) Count 3.05 mill/uL (4.70-6.10); White Blood Cell (WBC) Count 9.2 10x3/uL (4.8-10.8)
[2023-12-25 06:08] LABS: Anion Gap 16 mmol/L (10-20); BUN (Urea Nitrogen) 73 mg/dL (8.4-25.7); Calc. Creatinine Clearance 18 mL/min (70-130); Carbon Dioxide 25 mmol/L (23-31); Chloride 101 mmol/L (98-107); Estimated GFR 19; Glucose 95 mg/dL (83-110); Potassium 3.5 mmol/L (3.5-5.1); Sodium 138 mmol/L (136-145)
[2023-12-25] MEDS: Potassium Chloride 20 MEQ TAB PO SCH (10:10)
[2023-12-25] MEDS: DOBUTamine 500 mg/250 ml 250 ML IVPB SCH (10:11)
[2023-12-25 11:21] VITALS: BP 121/66; TEMP 97.5
[2023-12-25 14:37] VITALS: BMI 23.8
[2023-12-26] MEDS ORDERED: Furosemide 40 MG TAB PO SCH (07:30)
[2023-12-26] MEDS ORDERED: Potassium Chloride 10 MEQ TAB PO SCH (09:00)
== END 2023-12-25 15:20 | DRG 280 ==
LOC: ERS 12:23 → ERHOLD 15:04 → 2NO 12-21 14:57
PROVIDERS: ADMIT Internal Medicine; ATTEND Hospitalist
DX: I13.0 Hypertensive heart and chronic kidney disease with heart failure and stage 1 through stage 4 chronic kidney disease, or unspecified chronic kidney disease (principal); I50.43 Acute on chronic combined systolic (congestive) and diastolic (congestive) heart failure; I21.A1 Myocardial infarction type 2; N18.4 Chronic kidney disease, stage 4 (severe); N17.9 Acute kidney failure, unspecified; I25.10 Atherosclerotic heart disease of native coronary artery without angina pectoris; E78.5 Hyperlipidemia, unspecified; Z66 Do not resuscitate; I25.5 Ischemic cardiomyopathy; I34.0 Nonrheumatic mitral (valve) insufficiency; N32.89 Other specified disorders of bladder; D64.9 Anemia, unspecified; E87.5 Hyperkalemia; J40 Bronchitis, not specified as acute or chronic; I42.9 Cardiomyopathy, unspecified; Z79.899 Other long term (current) drug therapy; Z79.82 Long term (current) use of aspirin; I25.2 Old myocardial infarction; Z98.890 Other specified postprocedural states; Z82.49 Family history of ischemic heart disease and other diseases of the circulatory system; Z87.891 Personal history of nicotine dependence
CPT/HCPCS: 36415; 71045; 74150; 76700; 80048; 80053; 81001; 82728; 83540; 83550; 83690; 83880; 84484; 85025; 85027; 87633; 87798; 93005; 93306; 93798; 96374; J1250; J1650; J1940

== ENCOUNTER 2024-01-04 21:29 | Inpatient (IN) | payer MEDICARE ==
[2024-01-05] MEDS: Benzonatate 100 MG CAP PO PRN (01:10)
[2024-01-05] MEDS ORDERED: Acetaminophen 325 MG TAB PO PRN (01:55)
[2024-01-05] MEDS ORDERED: Ondansetron PF 4 MG/2 ML Vial IVP PRN (01:55)
[2024-01-05] MEDS ORDERED: Ondansetron ODT 4 MG TAB PO PRN (01:55)
[2024-01-05] MEDS ORDERED: Acetaminophen 650 MG Suppository PR PRN (01:55)
[2024-01-05 02:50] LABS: #Basophils 0.06 10x3/uL (0.0-0.2); %Basophils 0.7 % (0.0-1.0); %Eosinophils 0.3 % (0.0-10.0); %Lymphocytes 18.6 % (21.0-51.0); %Monocytes 8.1 % (0.0-10.0); Hematocrit 32.6 % (42.0-52.0); Hemoglobin 9.9 g/dL (14.0-18.0); Mean Corpuscular HGB CONC 30.4 g/dL (32.0-36.0); Mean Corpuscular Hemoglobin 31.8 pg (27.0-31.0); Mean Corpuscular Volume 104.8 fL (78.0-98.0); Mean Platelet Volume 10.9 fL (7.4-10.4); Platelet Count 293 10x3/uL (130-400); RBC Distribution Width 15.1 % (11.5-14.5); Red Blood Cell (RBC) Count 3.11 mill/uL (4.70-6.10)
[2024-01-05 03:37] LABS: Anion Gap 23 mmol/L (10-20); BUN (Urea Nitrogen) 85 mg/dL (8.4-25.7); Calc. Creatinine Clearance 16 mL/min (70-130); Calcium 9.3 mg/dL (7.8-10.44); Carbon Dioxide 17 mmol/L (23-31); Chloride 105 mmol/L (98-107); Estimated GFR 16; Glucose 93 mg/dL (83-110); Potassium 5.5 mmol/L (3.5-5.1); Sodium 139 mmol/L (136-145)
[2024-01-05 03:57] LABS: Lactic Acid 4.6 mmol/L (0.5-2.2)
[2024-01-05] MEDS: Sodium Chloride 0.9% 500 ML IV SCH (06:49)
[2024-01-05] MEDS ORDERED: Piperacillin/Tazobactam 3.375 GM in Sodium Chloride 0.9% 100 ML IVPB SCH (07:00)
[2024-01-05 07:26] LABS: Anion Gap 30 mmol/L (10-20); BUN (Urea Nitrogen) 86 mg/dL (8.4-25.7); Calc. Creatinine Clearance 15 mL/min (70-130); Calcium 9.3 mg/dL (7.8-10.44); Carbon Dioxide 11 mmol/L (23-31); Chloride 105 mmol/L (98-107); Estimated GFR 16; Glucose 61 mg/dL (83-110); Magnesium 2.6 mg/dL (1.6-2.6); Potassium 5.4 mmol/L (3.5-5.1); Sodium 141 mmol/L (136-145)
[2024-01-05 07:30] LABS: Troponin I 0.117 ng/mL (< 0.028)
[2024-01-05] MEDS ORDERED: Azithromycin 500 MG in Sodium Chloride 0.9% 250 ML 250 ML IVPB SCH (08:00)
[2024-01-05] MEDS ORDERED: cefTRIAXone\\ROCEPHIN 1 GM in Sodium Chloride 0.9% 100 ML IVPB SCH (08:00)
[2024-01-05] MEDS ORDERED: Dextrose 50% Abboject 50 ML SYRINGE SLOW IVP PRN (08:20)
[2024-01-05] MEDS ORDERED: Glucagon 1 MG/ML KIT IM PRN (08:20)
[2024-01-05] MEDS ORDERED: Dextrose 5% in Water 1,000 ML IV PRN (08:20)
[2024-01-05] MEDS: Dextrose 10% in Water 1,000 ML IV SCH (08:30)
[2024-01-05] MEDS: Glucagon 1 MG/ML KIT ONE (08:30)
[2024-01-05 08:35] LABS: Critical Call Chem-Lactate NUR.CD10@0835; Lactic Acid 10.5 mmol/L (0.5-2.2)
[2024-01-05] MEDS ORDERED: DOBUTamine 500 mg/250 ml 250 ML IVPB SCH (08:45)
[2024-01-05 10:15] LABS: Magnesium 2.5 mg/dL (1.6-2.6); Phosphorus 6.3 mg/dL (2.3-4.7)
[2024-01-05] MEDS: DOBUTamine 500 mg/250 ml 250 ML IVPB SCH (10:51)
[2024-01-05] MEDS: Piperacillin/Tazobactam 3.375 GM in Sodium Chloride 0.9% 100 ML IVPB SCH ×2 (10:59→17:33)
[2024-01-05] MEDS: Aspirin 81 mg Enteric Coated Tablet PO SCH (10:59)
[2024-01-05] MEDS: Furosemide 40 MG (4 mL) VIAL SLOW IVP SCH (10:59)
[2024-01-05 14:47] LABS: Anion Gap 18 mmol/L (10-20); BUN (Urea Nitrogen) 93 mg/dL (8.4-25.7); Calc. Creatinine Clearance 15 mL/min (70-130); Calcium 8.8 mg/dL (7.8-10.44); Carbon Dioxide 20 mmol/L (23-31); Chloride 102 mmol/L (98-107); Estimated GFR 15; Glucose 122 mg/dL (83-110); Potassium 4.8 mmol/L (3.5-5.1); Sodium 135 mmol/L (136-145)
[2024-01-05] MEDS ORDERED: Artificial Tear Sol 15 ML BOT EA EYE PRN (16:07)
[2024-01-05] MEDS ORDERED: Moisturizing Cream (Eucerin) 113 GM JAR TOP PRN (16:07)
[2024-01-05 23:05] LABS: Strep pneumo Urine Ag NEGATIVE (NEGATIVE)
[2024-01-06 04:12] LABS: #Basophils 0.04 10x3/uL (0.0-0.2); %Basophils 0.4 % (0.0-1.0); %Eosinophils 2.4 % (0.0-10.0); %Lymphocytes 11.9 % (21.0-51.0); %Monocytes 4.3 % (0.0-10.0); %Neutrophils 80.5 % (42.0-75.0); Hematocrit 26.2 % (42.0-52.0); Hemoglobin 8.3 g/dL (14.0-18.0); Mean Corpuscular HGB CONC 31.7 g/dL (32.0-36.0); Mean Corpuscular Volume 101.2 fL (78.0-98.0); Mean Platelet Volume 10.6 fL (7.4-10.4); Platelet Count 231 10x3/uL (130-400); RBC Distribution Width 14.9 % (11.5-14.5); Red Blood Cell (RBC) Count 2.59 mill/uL (4.70-6.10)
[2024-01-06 04:41] LABS: Anion Gap 18 mmol/L (10-20); BUN (Urea Nitrogen) 97 mg/dL (8.4-25.7); Calc. Creatinine Clearance 15 mL/min (70-130); Calcium 9.1 mg/dL (7.8-10.44); Carbon Dioxide 20 mmol/L (23-31); Chloride 104 mmol/L (98-107); Estimated GFR 16; Glucose 85 mg/dL (83-110); Potassium 4.6 mmol/L (3.5-5.1); Sodium 137 mmol/L (136-145)
[2024-01-06] MEDS ORDERED: HYDROcodone/Acetaminophen 5/325 mg Tablet PO PRN (17:56)
[2024-01-06] MEDS ORDERED: Lorazepam 0.5 MG TAB PO PRN (17:56)
[2024-01-07 04:26] LABS: #Basophils Less than 0.03 10x3/uL (0.0-0.2); %Basophils 0.2 % (0.0-1.0); %Eosinophils 4.1 % (0.0-10.0); %Lymphocytes 4.8 % (21.0-51.0); %Monocytes 5.6 % (0.0-10.0); %Neutrophils 84.9 % (42.0-75.0); Hematocrit 25.8 % (42.0-52.0); Hemoglobin 8.3 g/dL (14.0-18.0); Mean Corpuscular HGB CONC 32.2 g/dL (32.0-36.0); Mean Corpuscular Hemoglobin 31.8 pg (27.0-31.0); Mean Corpuscular Volume 98.9 fL (78.0-98.0); Mean Platelet Volume 10.4 fL (7.4-10.4); Platelet Count 229 10x3/uL (130-400); Red Blood Cell (RBC) Count 2.61 mill/uL (4.70-6.10)
[2024-01-07 05:03] LABS: Anion Gap 14 mmol/L (10-20); BUN (Urea Nitrogen) 81 mg/dL (8.4-25.7); Calc. Creatinine Clearance 16 mL/min (70-130); Calcium 8.5 mg/dL (7.8-10.44); Carbon Dioxide 22 mmol/L (23-31); Chloride 101 mmol/L (98-107); Estimated GFR 16; Glucose 103 mg/dL (83-110); Potassium 4.2 mmol/L (3.5-5.1); Sodium 133 mmol/L (136-145)
[2024-01-07 06:39] VITALS: BMI 25.1
[2024-01-07] MEDS ORDERED: DOBUTamine 500 mg/250 ml 250 ML IVPB SCH (09:00)
[2024-01-07] MEDS ORDERED: Ipratropium/Albuterol 3 ML NEB NEB PRN (09:31)
[2024-01-07 10:57] VITALS: BP 102/67
[2024-01-07] MEDS: Piperacillin/Tazobactam 3.375 GM in Sodium Chloride 0.9% 100 ML IVPB SCH ×2 (14:53→17:58)
[2024-01-07 15:59] LABS: SARS-CoV-2 E Target Negative; SARS-CoV-2 N2 Target Negative; SARS-CoV-2 NAA Rapid Test Not Detected (NotDetected); SARS-CoV-2 RdRP gene Negative
[2024-01-07] MEDS: Heparin 5,000 UNITS/ML VIAL SC SCH (21:36)
[2024-01-08 04:22] LABS: Anion Gap 16 mmol/L (10-20); BUN (Urea Nitrogen) 71 mg/dL (8.4-25.7); Calc. Creatinine Clearance 17 mL/min (70-130); Calcium 8.7 mg/dL (7.8-10.44); Carbon Dioxide 23 mmol/L (23-31); Chloride 100 mmol/L (98-107); Estimated GFR 18; Glucose 103 mg/dL (83-110); Potassium 3.8 mmol/L (3.5-5.1); Sodium 135 mmol/L (136-145)
[2024-01-08] MEDS: Furosemide 40 MG (4 mL) VIAL SLOW IVP SCH (06:10)
[2024-01-08 11:53] VITALS: TEMP 98
== END 2024-01-08 14:32 | disposition home or self-care (01) | DRG 871 ==
LOC: 2NO 01-05 00:21 → OBSVTOIN 01-05 08:21 → IMCU/EMU 01-05 09:46
PROVIDERS: ADMIT Student in an Organized Health Care Education/Training Program; ATTEND Family Medicine
DX: A41.9 Sepsis, unspecified organism (principal); I21.A1 Myocardial infarction type 2; I50.23 Acute on chronic systolic (congestive) heart failure; J18.9 Pneumonia, unspecified organism; R57.0 Cardiogenic shock; I13.0 Hypertensive heart and chronic kidney disease with heart failure and stage 1 through stage 4 chronic kidney disease, or unspecified chronic kidney disease; N18.4 Chronic kidney disease, stage 4 (severe); N17.9 Acute kidney failure, unspecified; E87.20 Acidosis, unspecified; I42.9 Cardiomyopathy, unspecified; Z66 Do not resuscitate; Z51.5 Encounter for palliative care; I25.10 Atherosclerotic heart disease of native coronary artery without angina pectoris; Z79.82 Long term (current) use of aspirin; Z79.899 Other long term (current) drug therapy; E78.5 Hyperlipidemia, unspecified; Z95.1 Presence of aortocoronary bypass graft
CPT/HCPCS: 36415; 36416; 71045; 80048; 82533; 83605; 83735; 84100; 84145; 84443; 84484; 85025; 87449; J1250; J1611; J1644; J1940; J2543; J3490; J7030; U0002